=== PATIENT | male | born 1990 | race Caucasian/White ===

== ENCOUNTER 2016-12-25 18:43 | Emergency (ER) | payer BC, OTHER ==
--- NOTE | 2016-12-25 22:07 | ER Document Report ---
ED Cardiac - General Mode of Arrival: Medic Information source: Patient - HPI Patient complains to provider of: Chest pain Severity now: Mild Severity at worst: Mild Associated symptoms: Anxiety, Shortness of breath - General Chief Complaint: Chest Pain Time Seen by Provider: 12/25/16 22:01 Notes: Patient is a 26 year old male that presents to the emergency department today with complaints of chest pain described as a pressure which began prior to arrival while at a birthday [employer]. Patient states that he believes stress has caused his pain today. Patient states his pain is worse when sitting still. Patient states his pain is constant. Patient complains of associated shortness of breath. Patient appears anxious. (BRINDA RENE) Past Medical History - General Information source: Patient - Social History Smoking Status: Current Every Day Smoker Cigarette use (# per day): Yes Smoking Education Provided: Yes Frequency of alcohol use: None Drug Abuse: None Lives with: Family Family History: Reviewed & Not Pertinent - Medical History Medical History: Negative Surgical Hx: Negative Review of Systems - Review of Systems Constitutional: No symptoms reported EENT: No symptoms reported Cardiovascular: See HPI, Chest pain Respiratory: See HPI, Short of breath Gastrointestinal: No symptoms reported Genitourinary: No symptoms reported Male Genitourinary: No symptoms reported Musculoskeletal: No symptoms reported Skin: No symptoms reported Hematologic/Lymphatic: No symptoms reported Neurological/Psychological: See HPI, Anxiety -: Yes All other systems reviewed and negative Physical Exam - Vital signs Vitals: Resp Pulse Ox 15 97 12/25/16 21:59 12/25/16 21:59 - Notes Notes: PHYSICAL EXAM GENERAL: Alert, interacts well. No acute distress. HEAD: Normocephalic, atraumatic. EYES: Pupils equal, round, and reactive to light. Extraocular movements intact. ENT: Oral mucosa moist, tongue midline. NECK: Full range of motion. Supple. Trachea midline. LUNGS: Clear to auscultation bilaterally, no wheezes, rales, or rhonchi. No respiratory distress. HEART: Mildly tachycardic, regular rhythm. No murmurs, gallops, or rubs. ABDOMEN: Soft, non-tender. Non-distended. Bowel sounds present in all 4 quadrants. EXTREMITIES: Moves all 4 extremities spontaneously. No edema, radial and dorsalis pedis pulses 2/4 bilaterally. No cyanosis. NEUROLOGICAL: Alert and oriented x3. Normal speech. PSYCH: Normal affect, mildly anxious. SKIN: Warm, dry, normal turgor. Diffuse sunburn. No rashes or lesions noted. (BRINDA RENE) Course - Re-evaluation Re-evalutation: 12/25/16 22:38 CBC unremarkable, cardiac enzymes negative, CMP unremarkable, chest x-ray shows no acute process, EKG is nonischemic. Patient is feeling much better. Patient describes a large amount of stress going on in his life and feeling quite anxious. The tachycardia has resolved and there is no hypoxia to suggest pulmonary embolism. Suspect this is coming purely from anxiety. Discussed symptomatic treatment of anxiety with Vistaril, patient will be discharged to home. 12/25/16 23:13 (MARGARITO KC) - Vital Signs Vital signs: Temp Pulse Resp BP Pulse Ox 15 97 12/25/16 21:59 12/25/16 21:59 Discharge - Discharge Clinical Impression: Chest pain with low risk for cardiac etiology, Anxiety Condition: Stable Disposition: HOME, SELF-CARE Instructions: Chest Pain of Unclear Cause ([facility]) Prescriptions: Hydroxyzine Pamoate [Vistaril 25 mg Capsule] 25 mg PO Q6HP PRN #20 capsule PRN Reason: Referrals: MERCEDES FROST MD [ACTIVE STAFF] - Follow up as needed Scribe Attestation: 12/25/16 23:13 I personally performed the services described in the documentation, reviewed and edited the documentation which was dictated to the scribe in my presence, and it accurately records my words and actions. (MARGARITO KC) Scribe Documentation - Scribe Written by Scribe:: Eber Padilla, 12/25/2016 1204 acting as scribe for :: Ching
--- NOTE | 2016-12-25 22:34 | RADIOLOGY REPORT (SQ) ---
EXAM DESCRIPTION: CHEST PA/LAT COMPLETED DATE/TIME: 12/25/2016 10:10 pm REASON FOR STUDY: CP, SOB COMPARISON: None. EXAM PARAMETERS: NUMBER OF VIEWS: two views TECHNIQUE: Digital Frontal and Lateral radiographic views of the chest acquired. RADIATION DOSE: NA LIMITATIONS: none FINDINGS: LUNGS AND PLEURA: No opacities, masses or pneumothorax. No pleural effusion. MEDIASTINUM AND HILAR STRUCTURES: No masses or contour abnormalities. HEART AND VASCULAR STRUCTURES: Heart normal size. No evidence for failure. BONES: No acute findings. HARDWARE: None in the chest. OTHER: No other significant finding. IMPRESSION: NO SIGNIFICANT RADIOGRAPHIC FINDING IN THE CHEST. TECHNICAL DOCUMENTATION: JOB ID: [id number] [employer]- All Rights Reserved
[2016-12-26 06:06] LABS: ABSOLUTE EOSINOPHILS # (AUTO) 0.2 10^3/uL (0.0-0.6); ABSOLUTE LYMPHOCYTES (AUTO) 2.6 10^3/uL (0.5-4.7); ABSOLUTE MONOCYTES (AUTO) 0.9 10^3/uL (0.1-1.4); ABSOLUTE NEUT (AUTO) 6.1 10^3/uL (1.7-8.2); BASOPHILS % (AUTO) 0.5 % (0-2); EOSINOPHILS % (AUTO) 1.7 % (0-6); HEMATOCRIT 46.7 % (37.9-51.0); HEMOGLOBIN 16.7 g/dL (13.5-17.0); HGB HCT DIFFERENCE 3.4; LYMPHOCYTES % (AUTO) 26.5 % (13-45); MEAN CORPUSCULAR HEMOGLOBIN 33.3 pg (27.0-33.4); MEAN CORPUSCULAR HGB CONC 35.7 g/dL (32.0-36.0); MEAN CORPUSCULAR VOLUME 93 fl (80-97); MONOCYTES % (AUTO) 9.4 % (3-13); RED BLOOD COUNT 5.01 10^6/uL (4.35-5.55); RED CELL DISTRIBUTION WIDTH 12.5 % (11.5-14.0); SEGMENTED NEUTROPHILS % (AUTO) 61.9 % (42-78); WHITE BLOOD COUNT 9.9 10^3/uL (4.0-10.5)
[2016-12-26 06:18] LABS: ALANINE AMINOTRANSFERASE 32 U/L (21-72); ALBUMIN 4.9 g/dL (3.5-5.0); ALKALINE PHOSPHATASE 70 U/L (38-126); ANION GAP 15 (5-19); ASPARTATE AMINO TRANSFERASE 28 U/L (17-59); BILIRUBIN,DIRECT 0.4 mg/dL (0.0-0.4); BILIRUBIN,TOTAL 1.1 mg/dL (0.2-1.3); BLOOD UREA NITROGEN 6 mg/dL (7-20); CALCIUM 10.1 mg/dL (8.4-10.2); CARBON DIOXIDE 25 mmol/L (22-30); CHLORIDE 101 mmol/L (98-107); CREATINE KINASE 227 U/L (55-170); CREATINE KINASE MB 1.24 ng/mL (<4.55); CREATININE RESULT 1.19 mg/dL (0.52-1.25); GLUCOSE 103 mg/dL (75-110); POTASSIUM 3.6 mmol/L (3.6-5.0); SODIUM 140.9 mmol/L (137-145); TOTAL PROTEIN 7.8 g/dL (6.3-8.2); TROPONIN I < 0.012 ng/mL
--- NOTE | 2016-12-27 12:20 | EKG REPORT ---
SEVERITY:- NORMAL ECG - SINUS RHYTHM : Confirmed by: Ricarda Moore MD 27-Dec-2016 12:19:45
== END 2016-12-25 22:58 | disposition home or self-care (01) ==
LOC: ER 18:43
DX: R07.9 Chest pain, unspecified (principal); R06.02 Shortness of breath; F41.9 Anxiety disorder, unspecified; F17.210 Nicotine dependence, cigarettes, uncomplicated
CPT/HCPCS: 36415; 71020; 80053; 82550; 82553; 84484; 85025; 85379; 93005; 93010; 99285